=== PATIENT | male | born 1960 | race Caucasian/White ===

== ENCOUNTER 2017-09-05 19:38 | Inpatient (IN) | payer OTHER ==
[2017-09-05] MEDS ORDERED: MOM 30ML SUSPENSION UDC PO (21:15)
[2017-09-05] MEDS ORDERED: traZODone 50 MG TAB PO (21:15)
[2017-09-05] MEDS ORDERED: IBUPROFEN 400 MG TAB PO (21:15)
[2017-09-05] MEDS ORDERED: MAALOX 30 ML SUSP *UDC PO (21:15)
[2017-09-06] MEDS ORDERED: diphenhydrAMINE 50 MG CAP PO (13:00)
[2017-09-06] MEDS ORDERED: hydrOXYzine 25 MG TAB PO (13:00)
[2017-09-06] MEDS: SERTRALINE HCL 50 MG TAB PO (16:56)
[2017-09-06] MEDS: PANTOPRAZOLE 40MG TAB (PROTONIX) PO (16:57)
[2017-09-07] MEDS: PANTOPRAZOLE 40MG TAB (PROTONIX) PO (09:39)
[2017-09-07] MEDS: SERTRALINE HCL 50 MG TAB PO (09:39)
[2017-09-07] MEDS ORDERED: ALBUTEROL 90 MCG/ACT 8GM HFA INHALER INH (09:45)
[2017-09-07 11:34] LABS: MEAN CORPUSCULAR HEMOGLOBIN 30.1 pg (27.0-33.0); MEAN CORPUSCULAR HGB CONC 34.8 g/dl (32.0-36.5); MEAN CORPUSCULAR VOLUME 86.6 fl (80.0-96.0); PLATELET COUNT, AUTOMATED 291 10^3/uL (150-450); RED BLOOD COUNT 5.31 10^6/uL (4.30-6.10); RED CELL DISTRIBUTION WIDTH 13.2 % (11.5-14.5); WHITE BLOOD COUNT 7.4 10^3/uL (4.0-10.0)
[2017-09-07 11:54] LABS: ANION GAP 6 MEQ/L (8-16); BLOOD UREA NITROGEN 11 MG/DL (7-18); CALCIUM LEVEL 9.1 MG/DL (8.5-10.1); CARBON DIOXIDE LEVEL 28 MEQ/L (21-32); CHLORIDE LEVEL 105 MEQ/L (98-107); CREATININE FOR GFR 0.86 MG/DL (0.70-1.30); GLOMERULAR FILTRATION RATE > 60.0 (>56); GLUCOSE, FASTING 124 MG/DL (70-105); POTASSIUM SERUM 4.3 MEQ/L (3.5-5.1); SODIUM LEVEL 139 MEQ/L (136-145)
[2017-09-07] MEDS: ADVAIR HFA 230/21MCG INHALER INH ×2 (12:50→21:57)
[2017-09-08] MEDS: PANTOPRAZOLE 40MG TAB (PROTONIX) PO (09:07)
[2017-09-08] MEDS: ADVAIR HFA 230/21MCG INHALER INH ×2 (09:07→20:21)
[2017-09-08] MEDS: SERTRALINE HCL 50 MG TAB PO (09:07)
[2017-09-09] MEDS: ADVAIR HFA 230/21MCG INHALER INH (08:37)
[2017-09-09] MEDS: PANTOPRAZOLE 40MG TAB (PROTONIX) PO (08:37)
[2017-09-09] MEDS: SERTRALINE HCL 50 MG TAB PO (08:37)
== END 2017-09-09 10:15 | disposition home or self-care (01) | DRG 881 ==
LOC: M ED 19:38 → M ED INP 21:51 → M PSY 21:56
DX: F43.21 Adjustment disorder with depressed mood (principal); F10.10 Alcohol abuse, uncomplicated; Z79.899 Other long term (current) drug therapy; Z91.040 Latex allergy status; K21.9 Gastro-esophageal reflux disease without esophagitis; J45.909 Unspecified asthma, uncomplicated; M54.5 Low back pain; E87.6 Hypokalemia; D72.829 Elevated white blood cell count, unspecified